=== PATIENT | male | born 1940 | race Hispanic/Latino ===

== ENCOUNTER 2020-11-03 19:22 | Inpatient (IN) | payer MEDICARE ==
[~2020-11-03] VITALS: Ht 157.5 cm; Wt 81.6 kg
[2020-11-03] MEDS ORDERED: SODIUM CHLORIDE 0.9% 50ML 50 ML ONE (21:03)
[2020-11-03] MEDS ORDERED: IOPAMIDOL 370 MG/ML 200 ML INFUS..BTL INJ ONE (21:04)
[2020-11-03] MEDS ORDERED: ONDANSETRON HCL INJ 2MG/ML 2ML 2 MG/ML VIAL IV PRN (22:15)
[2020-11-03] MEDS ORDERED: MORPHINE SULFATE INJ 2 MG/ML SYR IV PRN (22:15)
[2020-11-03] MEDS ORDERED: MORPHINE SULFATE INJ 4 MG/ML INJ 1ML IV PRN (22:30)
[2020-11-03] MEDS: SODIUM CHLORIDE 0.9% 1000ML 1,000 ML IV SCH (23:23)
[2020-11-04] VITALS (8 sets, daily range): BP systolic 98–157; BP diastolic 45–94
[2020-11-04] MEDS: PIPERACILLIN/TAZOBACTAM 3.375 GM in SODIUM CHLORIDE 0.9% 50ML 50 ML IV SCH ×5 (01:31→23:17)
[2020-11-04] MEDS ORDERED: COLACE100 MG PO (02:43)
[2020-11-04] MEDS ORDERED: ATORVASTATIN CA20 MG PO (02:43)
[2020-11-04] MEDS ORDERED: GLIPIZIDE5 MG PO (02:43)
[2020-11-04] MEDS ORDERED: diclofenac 1% EXT (02:43)
[2020-11-04] MEDS ORDERED: VESICARE5 MG PO (02:43)
[2020-11-04] MEDS ORDERED: NEXIUM40 MG PO (02:43)
[2020-11-04] MEDS ORDERED: QUINAPRIL HCL20 MG PO (02:43)
[2020-11-04] MEDS ORDERED: GABAPENTIN300 MG PO (02:43)
[2020-11-04] MEDS ORDERED: FLOMAX0.4 MG PO (02:43)
[2020-11-04] MEDS: SODIUM CHLORIDE 0.9% 1000ML 1,000 ML IV SCH ×3 (05:59→20:19)
[2020-11-04 07:20] LABS: BASOPHILS # (AUTO) 0.1 (0.0-0.1); BASOPHILS % 0.6 % (0.0-1.0); EOSINOPHILS # (AUTO) 0.4 (0.0-0.4); EOSINOPHILS % 4.7 % (0.0-6.0); HEMATOCRIT 46.1 % (38.2-49.6); LYMPHOCYTES # (AUTO) 1.5 (1.0-3.2); LYMPHOCYTES % 18.3 % (18.0-39.1); MEAN CORPUSCULAR HEMOGLOBIN 30.8 pg (28-32); MEAN CORPUSCULAR HGB CONC 30.4 g/dL (31-35); MEAN CORPUSCULAR VOLUME 101.3 fL (81-99); MONOCYTES # (AUTO) 0.9 (0.2-0.8); NEUTROPHILS # (AUTO) 5.2 (2.1-6.9); PLATELET COUNT 138 x10e3/uL (140-360); RED BLOOD COUNT 4.55 x10e6/uL (4.3-5.7); RED CELL DISTRIBUTION WIDTH 15.1 % (11.7-14.4)
[2020-11-04 07:28] LABS: ALBUMIN 2.8 g/dL (3.5-5.0); ANION GAP 13.5 mmol/L (8-16); CALCIUM 8.1 mg/dL (8.4-10.2); CREATININE, SERUM 1.75 mg/dL (0.72-1.25); POTASSIUM 4.5 mmol/L (3.5-5.1)
[2020-11-04] MEDS ORDERED: DEXTROSE 50% SYRINGE 50 ML IV PRN (07:45)
[2020-11-04 08:13] LABS: CREATINE KINASE MB 3.2 ng/mL (0-5.0)
[2020-11-04] MEDS: INSULIN LISPRO 100 UNIT/1 ML 3ML VIAL SQ SCH ×4 (08:28→20:20)
[2020-11-04 11:11] LABS: CHOL/HDL RATIO 3.1 (3.9-4.7)
[2020-11-04] MEDS ORDERED: INSULIN LISPRO 100 UNIT/1 ML 3ML VIAL SQ SCH (11:30)
[2020-11-04] MEDS: TAMSULOSIN HCL 0.4 MG CAP PO SCH (17:21)
[2020-11-04] MEDS: ATORVASTATIN 40 MG TAB PO SCH (20:19)
[2020-11-05] VITALS (8 sets, daily range): BP systolic 142–168; BP diastolic 55–151
[2020-11-05 06:09] LABS: BASOPHILS # (AUTO) 0.1 (0.0-0.1); BASOPHILS % 0.6 % (0.0-1.0); EOSINOPHILS # (AUTO) 0.3 (0.0-0.4); EOSINOPHILS % 3.8 % (0.0-6.0); HEMATOCRIT 44.7 % (38.2-49.6); HEMOGLOBIN 13.6 g/dL (14.0-18.0); LYMPHOCYTES # (AUTO) 1.4 (1.0-3.2); LYMPHOCYTES % 17.3 % (18.0-39.1); MEAN CORPUSCULAR HEMOGLOBIN 30.6 pg (28-32); MEAN CORPUSCULAR HGB CONC 30.4 g/dL (31-35); MEAN CORPUSCULAR VOLUME 100.7 fL (81-99); MONOCYTES % 12.1 % (4.4-11.3); NEUTROPHILS # (AUTO) 5.2 (2.1-6.9); NEUTROPHILS % 65.9 % (38.7-80.0); PLATELET COUNT 147 x10e3/uL (140-360); RED BLOOD COUNT 4.44 x10e6/uL (4.3-5.7); RED CELL DISTRIBUTION WIDTH 14.8 % (11.7-14.4)
[2020-11-05] MEDS: SODIUM CHLORIDE 0.9% 1000ML 1,000 ML IV SCH ×5 (06:12→22:30)
[2020-11-05] MEDS: PIPERACILLIN/TAZOBACTAM 3.375 GM in SODIUM CHLORIDE 0.9% 50ML 50 ML IV SCH ×3 (06:12→19:00)
[2020-11-05 06:34] LABS: ALBUMIN 2.7 g/dL (3.5-5.0); ALBUMIN/GLOBULIN RATIO 0.9 (0.8-2.0); ANION GAP 13.1 mmol/L (8-16); CREATININE, SERUM 1.14 mg/dL (0.72-1.25); POTASSIUM 4.1 mmol/L (3.5-5.1)
[2020-11-05] MEDS: INSULIN LISPRO 100 UNIT/1 ML 3ML VIAL SQ SCH ×4 (07:30→21:44)
[2020-11-05] MEDS: TAMSULOSIN HCL 0.4 MG CAP PO SCH ×2 (09:00→16:52)
[2020-11-05 09:53] LABS: MAGNESIUM 1.9 MG/DL (1.3-2.1); PHOSPHORUS 2.7 MG/DL (2.3-4.7)
[2020-11-05] MEDS ORDERED: REGADENOSON 0.4 MG/5 ML SYR IV ONE (11:25)
[2020-11-05] MEDS: PANTOPRAZOLE SOD 40 MG TABEC PO SCH (16:52)
[2020-11-05] MEDS: GABAPENTIN 300 MG CAP PO SCH (16:52)
[2020-11-05] MEDS: ATORVASTATIN 40 MG TAB PO SCH (21:15)
[2020-11-06] VITALS (9 sets, daily range): BP systolic 123–175; BP diastolic 47–102
[2020-11-06] MEDS: PIPERACILLIN/TAZOBACTAM 3.375 GM in SODIUM CHLORIDE 0.9% 50ML 50 ML IV SCH ×4 (00:32→18:01)
[2020-11-06] MEDS: SODIUM CHLORIDE 0.9% 1000ML 1,000 ML IV SCH ×3 (06:15→21:57)
[2020-11-06] MEDS: INSULIN LISPRO 100 UNIT/1 ML 3ML VIAL SQ SCH ×4 (07:30→20:36)
[2020-11-06] MEDS: PANTOPRAZOLE SOD 40 MG TABEC PO SCH (08:52)
[2020-11-06] MEDS: GABAPENTIN 300 MG CAP PO SCH (08:52)
[2020-11-06] MEDS: TAMSULOSIN HCL 0.4 MG CAP PO SCH ×2 (08:52→17:57)
[2020-11-06 09:37] LABS: BASOPHILS % 0.5 % (0.0-1.0); EOSINOPHILS # (AUTO) 0.2 (0.0-0.4); EOSINOPHILS % 2.2 % (0.0-6.0); HEMATOCRIT 45.3 % (38.2-49.6); HEMOGLOBIN 14.2 g/dL (14.0-18.0); LYMPHOCYTES # (AUTO) 1.1 (1.0-3.2); LYMPHOCYTES % 13.6 % (18.0-39.1); MEAN CORPUSCULAR HEMOGLOBIN 31.5 pg (28-32); MEAN CORPUSCULAR HGB CONC 31.3 g/dL (31-35); MEAN CORPUSCULAR VOLUME 100.4 fL (81-99); MONOCYTES # (AUTO) 0.9 (0.2-0.8); MONOCYTES % 11.5 % (4.4-11.3); NEUTROPHILS # (AUTO) 5.7 (2.1-6.9); NEUTROPHILS % 71.8 % (38.7-80.0); PLATELET COUNT 161 x10e3/uL (140-360); RED BLOOD COUNT 4.51 x10e6/uL (4.3-5.7); RED CELL DISTRIBUTION WIDTH 14.9 % (11.7-14.4)
[2020-11-06 09:56] LABS: ANION GAP 13.2 mmol/L (8-16); CREATININE, SERUM 0.93 mg/dL (0.72-1.25); MAGNESIUM 1.8 MG/DL (1.3-2.1); PHOSPHORUS 2.4 MG/DL (2.3-4.7); POTASSIUM 4.2 mmol/L (3.5-5.1)
[2020-11-06] MEDS: METOPROLOL TARTRATE 25 MG TAB PO SCH ×2 (11:53→18:00)
[2020-11-06] MEDS ORDERED: SODIUM CHLORIDE 0.9% 50ML 100 ML ONE (16:16)
[2020-11-06] MEDS ORDERED: PIPERACILLIN/TAZOBACTAM 3.375 GM VIAL ONE (16:17)
[2020-11-06] MEDS: ATORVASTATIN 40 MG TAB PO SCH (20:35)
[2020-11-07] VITALS: BP 131/87
[2020-11-07] MEDS: PIPERACILLIN/TAZOBACTAM 3.375 GM in SODIUM CHLORIDE 0.9% 50ML 50 ML IV SCH ×3 (00:06→13:22)
[2020-11-07 04:00] VITALS: BP 170/68
[2020-11-07] MEDS: SODIUM CHLORIDE 0.9% 1000ML 1,000 ML IV SCH ×2 (05:41→13:22)
[2020-11-07] MEDS ORDERED: DOXYCYCLINE HY100 MG PO (06:14)
[2020-11-07] MEDS ORDERED: LOPRESSOR25 MG PO (06:14)
[2020-11-07] MEDS: INSULIN LISPRO 100 UNIT/1 ML 3ML VIAL SQ SCH ×2 (07:30→11:30)
[2020-11-07 08:32] VITALS: BP 147/43
[2020-11-07] MEDS: TAMSULOSIN HCL 0.4 MG CAP PO SCH (08:46)
[2020-11-07] MEDS: PANTOPRAZOLE SOD 40 MG TABEC PO SCH (08:46)
[2020-11-07] MEDS: METOPROLOL TARTRATE 25 MG TAB PO SCH (08:46)
[2020-11-07] MEDS: GABAPENTIN 300 MG CAP PO SCH (08:46)
[2020-11-07 12:10] VITALS: BP 150/62
[2020-11-07 15:45] VITALS: BP 129/54
== END 2020-11-07 16:15 | disposition home or self-care (01) | DRG 178 ==
LOC: FSED 19:45 → ERHOLD 22:11 → MED/SURG3 11-04 00:45
PROVIDERS: ADMIT Internal Medicine; ATTEND Internal Medicine
DX: J69.0 Pneumonitis due to inhalation of food and vomit (principal); N17.9 Acute kidney failure, unspecified; I50.32 Chronic diastolic (congestive) heart failure; J44.0 Chronic obstructive pulmonary disease with (acute) lower respiratory infection; I25.10 Atherosclerotic heart disease of native coronary artery without angina pectoris; Z95.1 Presence of aortocoronary bypass graft; K21.9 Gastro-esophageal reflux disease without esophagitis; E66.9 Obesity, unspecified; Z68.32 Body mass index [BMI] 32.0-32.9, adult; E78.5 Hyperlipidemia, unspecified; E11.40 Type 2 diabetes mellitus with diabetic neuropathy, unspecified; I11.0 Hypertensive heart disease with heart failure; Z87.891 Personal history of nicotine dependence; R09.02 Hypoxemia
CPT/HCPCS: 36415; 71045; 71260; 78452; 80048; 80053; 80061; 81003; 82550; 82553; 82948; 83036; 83735; 83880; 84100; 84484; 85025; 93005; 93017; 93306; 96361; 96372; 99284; A9502; J2270; J2543; J7030; Q9967; U0002